=== PATIENT | male | born 1950 ===

== ENCOUNTER 2020-02-22 08:05 | Day surgery (SDC) | payer MEDICARE, OTHER ==
[~2020-02-22] VITALS: Ht 175.3 cm; Wt 94.8 kg
[~2020-02-22 08:05] MED LIST: AMLO10 PO; AMLO5; Advil200 M1 PO; Aspir 8181 MG PO; BENZ100A; CEPH500; GUAI600T33; INDO50; LOSA50; TUMERIC
--- NOTE | 2020-02-22 08:44 | NUR ---
02/22/20 0844 Alvina Correa 1 TRY ON WRIST RIGHT ARM NO FLASH
== END 2020-02-22 10:11 | disposition home or self-care (01) ==
LOC: ORSCSDS 08:05
PROVIDERS: Internal Medicine Gastroenterology
PROC: 0DBL8ZX Excision of Transverse Colon, Via Natural or Artificial Opening Endoscopic, Diagnostic (ICD-10-PCS; principal; 2020-02-22 09:15)
PROC: 0DBK8ZX Excision of Ascending Colon, Via Natural or Artificial Opening Endoscopic, Diagnostic (ICD-10-PCS; principal; 2020-02-22 09:15)
DX: R10.9 Unspecified abdominal pain (principal); D12.2 Benign neoplasm of ascending colon; D12.3 Benign neoplasm of transverse colon; K57.30 Diverticulosis of large intestine without perforation or abscess without bleeding; K64.8 Other hemorrhoids; I10 Essential (primary) hypertension; D64.9 Anemia, unspecified; E78.00 Pure hypercholesterolemia, unspecified; Z79.899 Other long term (current) drug therapy
CPT/HCPCS: 88305; J0461; J2405; J2704; J7120